=== PATIENT | male | born 1945 | race Caucasian/White ===

== ENCOUNTER 2018-03-12 14:05 | Outpatient (CLI) | payer BC, MEDICARE ==
[~2018-03-12] VITALS: Ht 180.3 cm; Wt 114.3 kg
[~2018-03-12 14:05] MED LIST: CLON0.3T PO; LOSA100T28 PO; METO-539 PO; PRED1TAB PO
[2018-03-12 14:35] LABS: TOTAL HEMOGLOBIN 16.2 G/dl (14.0-18.0)
[2018-03-12] MEDS ORDERED: albuterol 2.5 MG/3 ML nebule NEB PRN (15:00)
== END 2018-03-12 23:59 | disposition home or self-care (01) ==
LOC: RT 14:05
PROVIDERS: ATTEND Internal Medicine Pulmonary Disease
DX: J44.9 Chronic obstructive pulmonary disease, unspecified (principal)
CPT/HCPCS: 85018; 94060; 94640; 94727; 94729; 94760